=== PATIENT | female | born 1950 | race Caucasian/White ===

== ENCOUNTER 2016-12-27 15:09 | Emergency (ER) | payer BC, MEDICARE ==
[~2016-12-27] VITALS: Ht 162.6 cm; Wt 84.8 kg
[2016-12-27 15:15] VITALS: BP 137/71; PULSE 105; RESP 16; TEMP 99.5; O2SAT 95
--- NOTE | 2016-12-27 15:40 | PD ---
HPI Chief Complaint: Abdominal Pain Time Seen by Provider: 15:23 Travel History International Travel<30 days: No Contact w/Intl Traveler<30days: No Traveled to known affect area: No History of Present Illness HPI 66-year-old female complains of low abdominal pain. Patient states that the abdominal pain started 2 days ago. Patient states the pain cramping pain intermittent pain localized to lower abdomen. Patient denies any pain radiation. Patient denies any nausea vomiting diarrhea. Patient denies any dysuria or frequency. Patient denies any vaginal discharge or bleeding. Patient status post hysterectomy in 2001. Patient denies any headache. Patient denies any chest pain or shortness of breath. Patient has history of L1 fracture intermittent back pain and upper abdominal pain which is not new. PFSH Past Medical History ?: Not Past Surgical History Hysterectomy: Yes Social History Tobacco Use: No Allergies-Medications (Allergen,Severity, Reaction): Coded Allergies: diphenhydramine (Verified Allergy, Intermediate, hyperactive, restless, ) morphine (Verified Allergy, Intermediate, rash, 12/27/16) pseudoephedrine (Verified Allergy, Intermediate, scalp crawls, 12/27/16) metoclopramide (Verified Allergy, Unknown, 12/27/16) Uncoded Allergies: combid (Allergy, Intermediate, muscles spasms on all extrem, 12/27/16) Reported Meds & Prescriptions Reported Meds & Active Scripts Active Augmentin (Amoxicillin-Clavulanate) 875-125 Mg Tab 1 Tab PO BID 10 Days Ultram (Tramadol HCl) 50 Mg Tab 50 Mg PO Q6H PRN Flagyl (Metronidazole) 500 Mg Tab 500 Mg PO TID 10 Days Cipro (Ciprofloxacin HCl) 500 Mg Tab 500 Mg PO BID 10 Days Review of Systems General / Constitutional: No: Fever Eyes: No: Visual changes HENT: No: Headaches Cardiovascular: No: Chest Pain or Discomfort Respiratory: No: Shortness of Breath Gastrointestinal: Positive: Abdominal Pain Genitourinary: No: Dysuria Musculoskeletal: No: Pain Skin: No Rash Neurologic: No: Weakness Psychiatric: No: Depression Endocrine: No: Polydipsia Hematologic/Lymphatic: No: Easy Bruising Physical Exam Narrative GENERAL: Well-nourished, well-developed patient. SKIN: Focused skin assessment warm/dry. HEAD: Normocephalic. EYES: No scleral icterus. No injection or drainage. NECK: Supple, trachea midline. No JVD or lymphadenopathy. CARDIOVASCULAR: Regular rate and rhythm without murmurs, gallops, or rubs. RESPIRATORY: Breath sounds equal bilaterally. No accessory muscle use. GASTROINTESTINAL: Abdomen soft, nondistended. Patient has mild tenderness on palpation lower abdomen. No rebound tenderness. No mass. MUSCULOSKELETAL: No cyanosis, or edema. BACK: Nontender without obvious deformity. No CVA tenderness. Neurologic exam normal. Data Data Last Documented VS Vital Signs Date Time Temp Pulse Resp B/P (MAP) Pulse Ox O2 Delivery O2 Flow Rate FiO2 12/27/16 19:40 12/27/16 17:38 99 96 12/27/16 16:07 Room Air 12/27/16 15:15 99.5 16 Orders Orders Complete Blood Count With Diff (12/27/16 15:35) Comprehensive Metabolic Panel (12/27/16 15:35) Prothrombin Time / Inr (Pt) (12/27/16 15:35) Act Partial Throm Time (Ptt) (12/27/16 15:35) Lipase (12/27/16 15:35) Urinalysis - C+S If Indicated (12/27/16 15:35) Ct Abd/Pel W Iv Contrast(Rout) (12/27/16 15:35) Iv Access Insert/Monitor (12/27/16 15:35) Ecg Monitoring (12/27/16 15:35) Oximetry (12/27/16 15:35) Sodium Chlor 0.9% 1000 Ml Inj (Ns 1000 M (12/27/16 15:45) Iohexol 350 Inj (Omnipaque 350 Inj) (12/27/16 17:10) Ceftriaxone Inj (Rocephin Inj) (12/27/16 18:00) Metronidazole (Flagyl) (12/27/16 18:00) Ed Discharge Order (12/27/16 18:19) Labs Laboratory Tests Test 12/27/16 15:56 White Blood Count 9.6 TH/MM3 Red Blood Count 4.45 MIL/MM3 Hemoglobin 13.1 GM/DL Hematocrit 41.1 % Mean Corpuscular Volume 92.3 FL Mean Corpuscular Hemoglobin 29.3 PG Mean Corpuscular Hemoglobin Concent 31.8 % Red Cell Distribution Width 13.7 % Platelet Count 276 TH/MM3 Mean Platelet Volume 8.1 FL Neutrophils (%) (Auto) 74.7 % Lymphocytes (%) (Auto) 19.3 % Monocytes (%) (Auto) 5.0 % Eosinophils (%) (Auto) 0.3 % Basophils (%) (Auto) 0.7 % Neutrophils # (Auto) 7.1 TH/MM3 Lymphocytes # (Auto) 1.9 TH/MM3 Monocytes # (Auto) 0.5 TH/MM3 Eosinophils # (Auto) 0.0 TH/MM3 Basophils # (Auto) 0.1 TH/MM3 CBC Comment DIFF FINAL Differential Comment Prothrombin Time 10.7 SEC Prothromb Time International Ratio 1.0 RATIO Activated Partial Thromboplast Time 26.4 SEC Urine Collection Type CLEAN CATCH Urine Color YELLOW Urine Turbidity CLEAR Urine pH 6.0 Urine Specific [place] 1.015 Urine Protein NEG mg/dL Urine Glucose (UA) NEG mg/dL Urine Ketones 15 mg/dL Urine Occult Blood TRACE Urine Nitrite NEG Urine Bilirubin NEG Urine Leukocyte Esterase TRACE Urine RBC 0-3 /hpf Urine WBC 3-5 /hpf Urine Squamous Epithelial Cells 0-5 /hpf Microscopic Urinalysis Comment CULT NOT INDICATED Blood Urea Nitrogen 5 MG/DL Creatinine 0.65 MG/DL Random Glucose 103 MG/DL Total Protein 8.0 GM/DL Albumin 3.6 GM/DL Calcium Level 9.0 MG/DL Alkaline Phosphatase 77 U/L Aspartate Amino Transf (AST/SGOT) 20 U/L Alanine Aminotransferase (ALT/SGPT) 30 U/L Total Bilirubin 0.5 MG/DL Sodium Level 138 MEQ/L Potassium Level 3.7 MEQ/L Chloride Level 103 MEQ/L Carbon Dioxide Level 26.8 MEQ/L Anion Gap 8 MEQ/L Estimat Glomerular Filtration Rate 91 ML/MIN Lipase 83 U/L [facility] Medical Decision Making Medical Screen Exam Complete: Yes Emergency Medical Condition: Yes Differential Diagnosis Differential diagnosis including colitis, UTI, pyelonephritis, nephrolithiasis, adhesion pain. Narrative Course 66-year-old female with low abdominal pain. Scripts Amoxicillin-Clavulanate (Augmentin) 875-125 Mg Tab 1 TAB PO BID for Infection for 10 Days, #20 TAB 0 Refills Prov: Kevan Velasco MD 12/27/16 Tramadol (Ultram) 50 Mg Tab 50 MG PO Q6H Y for PAIN, #20 TAB 0 Refills Prov: Kevan Velasco MD 12/27/16 Metronidazole (Flagyl) 500 Mg Tab 500 MG PO TID for Infection for 10 Days, TAB 0 Refills Prov: Kevan Velasco MD 12/27/16 Ciprofloxacin (Cipro) 500 Mg Tab 500 MG PO BID for Infection for 10 Days, #20 TAB 0 Refills Prov: Kevan Velasco MD 12/27/16 Lukas Fontanez MD Dec 27, 2016 15:40
[2016-12-27] MEDS ORDERED: SODIUM CHLOR 0.9% 1000 ML INJ 1,000 ML IV SCH (15:45)
[2016-12-27 16:07] VITALS: O2SAT 98
[2016-12-27 16:10] LABS: BILIRUBIN, URINE NEG (NEG); BLOOD, URINE TRACE (NEG); GLUCOSE,URINE NEG (NEG); KETONE, URINE 15 mg/dL (NEG); NITRITE,URINE NEG (NEG); URINE LEUKOCYTE ESTERASE TRACE (NEG)
[2016-12-27 16:14] LABS: AUTOMATED NEUTROPHIL # 7.1 TH/MM3 (1.8-7.7); BASOPHIL # 0.1 TH/MM3 (0-0.2); BASOPHIL % 0.7 % (0.0-2.0); EOSINOPHIL % 0.3 % (0.0-4.0); HEMATOCRIT 41.1 % (35.0-46.0); HEMOGLOBIN 13.1 GM/DL (11.6-15.3); LYMPH % 19.3 % (9.0-44.0); LYMPHOCYTE # 1.9 TH/MM3 (1.0-4.8); MEAN CELL VOLUME 92.3 FL (80.0-100.0); MEAN CORPUSCULAR HEMOGLOBIN 29.3 PG (27.0-34.0); MEAN CORPUSCULAR HGB CONC 31.8 % (32.0-36.0); MEAN PLATELET VOLUME 8.1 FL (7.0-11.0); MONOCYTE # 0.5 TH/MM3 (0-0.9); NEUT % 74.7 % (16.0-70.0); PLATELET COUNT 276 TH/MM3 (150-450); RED BLOOD COUNT 4.45 MIL/MM3 (4.00-5.30); RED CELL DISTRIBUTION WIDTH 13.7 % (11.6-17.2); WHITE BLOOD COUNT 9.6 TH/MM3 (4.0-11.0)
[2016-12-27 16:16] LABS: CHLORIDE 103 MEQ/L (98-107); SODIUM (NA) 138 MEQ/L (136-145)
[2016-12-27 16:19] LABS: URINE COLOR YELLOW (YELLW/STRAW)
[2016-12-27 16:20] LABS: ALBUMIN 3.6 GM/DL (3.4-5.0); BICARBONATE 26.8 MEQ/L (21.0-32.0); BLOOD UREA NITROGEN 5 MG/DL (7-18); GLUCOSE,RANDOM 103 MG/DL (74-106); LIPASE 83 U/L (73-393); RBC, URINE 0-3 /hpf (0-3); SQUAMOUS EPITHELIAL CELL URINE 0-5 /hpf (0-5)
[2016-12-27 16:21] LABS: PROTHROMBIN TIME - PATIENT 10.7 SEC (9.8-11.6)
[2016-12-27 16:23] LABS: ALT (GPT) 30 U/L (10-53); AST (GOT) 20 U/L (15-37); CREATININE 0.65 MG/DL (0.50-1.00); GLOMERULAR FILTRATION RATE 91 ML/MIN (>89)
[2016-12-27 16:24] LABS: TOTAL BILIRUBIN ADULT 0.5 MG/DL (0.2-1.0)
[2016-12-27 16:26] LABS: ALKALINE PHOSPHATASE 77 U/L (45-117)
[2016-12-27] MEDS ORDERED: IOHEXOL 350 MG/ML 10 ML VIAL (for RAD DIAG) IVCONTRAST ONE (17:10)
--- NOTE | 2016-12-27 17:14 | PD ---
Physical Exam Narrative GENERAL: pleasant lady, in no acute painful discomfort. SKIN: Warm and dry. HEAD: Atraumatic. Normocephalic. EYES: Pupils equal and round. No scleral icterus. No injection or drainage. ENT: No nasal bleeding or discharge. Mucous membranes pink and moist. NECK: Trachea midline. No JVD. CARDIOVASCULAR: Regular rate and rhythm. RESPIRATORY: No accessory muscle use. Clear to auscultation. Breath sounds equal bilaterally. GASTROINTESTINAL: Abdomen soft, mild lower abd ttp, nondistended. no rebound/ guarding/rigidity MUSCULOSKELETAL: Extremities without clubbing, cyanosis, or edema. No obvious deformities. NEUROLOGICAL: Awake and alert. No obvious cranial nerve deficits. Motor grossly within normal limits. Five out of 5 muscle strength in the arms and legs. Normal speech. PSYCHIATRIC: Appropriate mood and affect; insight and judgment normal. Data Data Last Documented VS Vital Signs Date Time Temp Pulse Resp B/P (MAP) Pulse Ox O2 Delivery O2 Flow Rate FiO2 12/27/16 17:38 99 129/70 (89) 96 12/27/16 16:07 Room Air 12/27/16 15:15 99.5 16 Orders Orders Complete Blood Count With Diff (12/27/16 15:35) Comprehensive Metabolic Panel (12/27/16 15:35) Prothrombin Time / Inr (Pt) (12/27/16 15:35) Act Partial Throm Time (Ptt) (12/27/16 15:35) Lipase (12/27/16 15:35) Urinalysis - C+S If Indicated (12/27/16 15:35) Ct Abd/Pel W Iv Contrast(Rout) (12/27/16 15:35) Iv Access Insert/Monitor (12/27/16 15:35) Ecg Monitoring (12/27/16 15:35) Oximetry (12/27/16 15:35) Sodium Chlor 0.9% 1000 Ml Inj (Ns 1000 M (12/27/16 15:45) Iohexol 350 Inj (Omnipaque 350 Inj) (12/27/16 17:10) Labs Laboratory Tests Test 12/27/16 15:56 White Blood Count 9.6 TH/MM3 Red Blood Count 4.45 MIL/MM3 Hemoglobin 13.1 GM/DL Hematocrit 41.1 % Mean Corpuscular Volume 92.3 FL Mean Corpuscular Hemoglobin 29.3 PG Mean Corpuscular Hemoglobin Concent 31.8 % Red Cell Distribution Width 13.7 % Platelet Count 276 TH/MM3 Mean Platelet Volume 8.1 FL Neutrophils (%) (Auto) 74.7 % Lymphocytes (%) (Auto) 19.3 % Monocytes (%) (Auto) 5.0 % Eosinophils (%) (Auto) 0.3 % Basophils (%) (Auto) 0.7 % Neutrophils # (Auto) 7.1 TH/MM3 Lymphocytes # (Auto) 1.9 TH/MM3 Monocytes # (Auto) 0.5 TH/MM3 Eosinophils # (Auto) 0.0 TH/MM3 Basophils # (Auto) 0.1 TH/MM3 CBC Comment DIFF FINAL Differential Comment Prothrombin Time 10.7 SEC Prothromb Time International Ratio 1.0 RATIO Activated Partial Thromboplast Time 26.4 SEC Urine Collection Type CLEAN CATCH Urine Color YELLOW Urine Turbidity CLEAR Urine pH 6.0 Urine Specific [place] 1.015 Urine Protein NEG mg/dL Urine Glucose (UA) NEG mg/dL Urine Ketones 15 mg/dL Urine Occult Blood TRACE Urine Nitrite NEG Urine Bilirubin NEG Urine Leukocyte Esterase TRACE Urine RBC 0-3 /hpf Urine WBC 3-5 /hpf Urine Squamous Epithelial Cells 0-5 /hpf Microscopic Urinalysis Comment CULT NOT INDICATED Blood Urea Nitrogen 5 MG/DL Creatinine 0.65 MG/DL Random Glucose 103 MG/DL Total Protein 8.0 GM/DL Albumin 3.6 GM/DL Calcium Level 9.0 MG/DL Alkaline Phosphatase 77 U/L Aspartate Amino Transf (AST/SGOT) 20 U/L Alanine Aminotransferase (ALT/SGPT) 30 U/L Total Bilirubin 0.5 MG/DL Sodium Level 138 MEQ/L Potassium Level 3.7 MEQ/L Chloride Level 103 MEQ/L Carbon Dioxide Level 26.8 MEQ/L Anion Gap 8 MEQ/L Estimat Glomerular Filtration Rate 91 ML/MIN Lipase 83 U/L [facility] Medical Record Reviewed: Yes Supervised Visit with NERIS: No Narrative Course ct findings c/w divertic without abscess or perforation Diagnosis Primary Impression: Acute diverticulitis Patient Instructions: Diverticulitis (ED), Diverticulitis Diet (DC), General Instructions Scripts Tramadol (Ultram) 50 Mg Tab 50 MG PO Q6H Y for PAIN, #20 TAB 0 Refills Prov: Kevan Velasco MD 12/27/16 Metronidazole (Flagyl) 500 Mg Tab 500 MG PO TID for Infection for 10 Days, TAB 0 Refills Prov: Kevan Velasco MD 12/27/16 Ciprofloxacin (Cipro) 500 Mg Tab 500 MG PO BID for Infection for 10 Days, #20 TAB 0 Refills Prov: Kevan Velasco MD 12/27/16 Disposition: 01 DISCHARGE HOME Condition: Stable Kevan Velasco MD Dec 27, 2016 17:14
--- NOTE | 2016-12-27 17:29 | RADRPT ---
EXAM DATE/TIME: 12/27/2016 17:07 [place] COMPARISON: No previous studies available for comparison. INDICATIONS : Lower abdomen pain for two days. IV CONTRAST: 90 cc Omnipaque 350 (iohexol) IV ORAL CONTRAST: No oral contrast ingested. RADIATION DOSE: 15.70 CTDIvol (mGy) MEDICAL HISTORY : Gastroesophageal reflux disease. L1 fracture SURGICAL HISTORY : Hysterectomy. ENCOUNTER: Initial ACUITY: 2 days PAIN SCALE: 7/10 LOCATION: Bilateral lower quadrant TECHNIQUE: Volumetric scanning of the abdomen and pelvis was performed. Using automated exposure control and ad justment of the mA and/or kV according to patient size, radiation dose was kept as low as reasonably achievable to obtain optimal diagnostic quality images. DICOM format image data is available electro nically for review and comparison. FINDINGS: LOWER LUNGS: The visualized lower lungs are clear. LIVER: Homogeneous density without lesion. There is no dilation of the biliary tree. No calcified gallston es. There is mild hepatic steatosis is gallbladder is unremarkable. SPLEEN: Normal size without lesion. PANCREAS: Within normal limits. KIDNEYS: Normal in size and shape. There is no mass, stone or hydronephrosis. ADRENAL GLANDS: Within normal limits. VASCULAR: There is no aortic aneurysm. BOWEL/MESENTERY: There is a small hiatal hernia. There is bowel wall thickening involving portion of the sigmoid colon measuring up to 1 cm. There is mild inflammatory change. There is small diverticuli present with wis py soft tissue density in the mesentery. There is no drainable fluid or free air. There is no evidenc e of obstruction. ABDOMINAL WALL: Within normal limits. RETROPERITONEUM: There is no lymphadenopathy. BLADDER: No wall thickening or mass. REPRODUCTIVE: Within normal limits. INGUINAL: There is no lymphadenopathy or hernia. MUSCULOSKELETAL: Within normal limits for patient age. CONCLUSION: 1. Findings most characteristic of acute diverticulitis involving a segment of the sigmoid colon with mild inflammatory change and no free air or fluid. 2. Small hiatal hernia. 3. Mild hepatic steatosis. Nithin Jimenez MD on December 27, 2016 at 17:19 Board Certified Radiologist. This report was verified electronically.
[2016-12-27 17:38] VITALS: BP 129/70; PULSE 99; O2SAT 96
[2016-12-27] MEDS ORDERED: METR-1 PO (17:41)
[2016-12-27] MEDS ORDERED: CIPR-9 PO (17:41)
[2016-12-27] MEDS ORDERED: ULTR50TA5 PO (17:41)
[2016-12-27] MEDS ORDERED: cefTRIAXone INJ 1,000 MG in SODIUM CHLORIDE 0.9% INJ 100 ML IV ONE (18:00)
[2016-12-27] MEDS ORDERED: metroNIDAZOLE 500 MG TAB PO ONE (18:00)
[2016-12-27] MEDS ORDERED: AUGM875T3 PO (18:01)
== END 2016-12-27 19:41 | disposition home or self-care (01) ==
LOC: PHED 15:09
DX: K57.92 Diverticulitis of intestine, part unspecified, without perforation or abscess without bleeding (principal); K44.9 Diaphragmatic hernia without obstruction or gangrene; K76.0 Fatty (change of) liver, not elsewhere classified; Z88.5 Allergy status to narcotic agent; Z88.8 Allergy status to other drugs, medicaments and biological substances
CPT/HCPCS: 74177; 80053; 81001; 83690; 85025; 85610; 85730; 96365; 99285; J0696; J7030; Q9967